=== PATIENT | male | born 1955 | race Caucasian/White ===

== ENCOUNTER 2022-03-22 05:09 | Emergency (ER) | payer SELFPAY ==
[~2022-03-22] VITALS: Ht 177.8 cm; Wt 99.8 kg
[2022-03-22 05:14] VITALS: BP 148/82
--- NOTE | 2022-03-22 06:20 | NUR ---
Dr. Mcdermott examining patient.
[2022-03-22] MEDS ORDERED: FLUORESCEIN OPTH STRIP 1 MG OP ONE (06:45)
--- NOTE | 2022-03-22 07:10 | NUR ---
PT SITTING IN C [id number]&OX4.
[2022-03-22] MEDS ORDERED: HYDROcodone/APAP 5/325 MG 1 TAB TAB PO ONE (07:30)
--- NOTE | 2022-03-22 08:17 | NUR ---
Don leung in [facility] - 03/22/22 at 0817 by [email or web address] PT CALLED IN [facility]OR[facility], NO ANSWER.
--- NOTE | 2022-03-22 11:19 | NUR ---
Patient discharged with v/s stable. Written and verbal after care instructions given FOR [facility]INAL [employer]ACHMENT and explained. Patient verbalized understanding. Ambulatory with steady gait. All questions addressed prior to discharge. Advised to follow up with PMD.
[2022-03-22 11:20] VITALS: BP 209/113
== END 2022-03-22 11:19 | disposition home or self-care (01) ==
LOC: MED 05:09
DX: H57.12 Ocular pain, left eye (principal); E11.9 Type 2 diabetes mellitus without complications; Z98.890 Other specified postprocedural states
CPT/HCPCS: 82948; 99283